=== PATIENT | female | born 1980 | race Hispanic/Latino ===

== ENCOUNTER → 2025-02-20 | Day surgery (SDC) | payer OTHER ==
[~2025-02-20] MED LIST: LACTATED RINGER'S 1,000 ML ONE; PROPOFOL IV EMULSION 10 MG/ML 20 ML VIAL ONE; PROPOFOL IV EMULSION 50 ML IV ONE
[2025-02-20 19:05] VITALS: BP 120/84; PULSE 71; RESP 17; O2SAT 98
== END | disposition home or self-care (01) ==
LOC: OR 15:03
PROVIDERS: ATTEND Internal Medicine Gastroenterology
DX: Z12.11 Encounter for screening for malignant neoplasm of colon (principal); D12.4 Benign neoplasm of descending colon; K64.8 Other hemorrhoids; J45.909 Unspecified asthma, uncomplicated; E66.9 Obesity, unspecified; Z71.89 Other specified counseling; Z68.34 Body mass index [BMI] 34.0-34.9, adult; Z71.3 Dietary counseling and surveillance
CPT/HCPCS: 45385; 81025; J2704 ×2; J7121